=== PATIENT | female | born 1960 | race Caucasian/White ===

== ENCOUNTER 2016-08-27 18:32 | Emergency (ER) | payer OTHER ==
--- NOTE | 2016-08-27 18:45 | EDPHY ---
H & P HPI/ROS: HPI CHIEF COMPLAINT: Back pain, neck pain, shoulder pain, arm pain, chest wall pain HISTORY OF PRESENT ILLNESS: Patient very pleasant 55-year-old female she has significant past medical history for diabetes, she presents to the emergency room for pain in her neck, back, shoulders, arms and chest wall. Patient states this injury happened at work. 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 She tells me the patient weighs 116 lb she states she took both arms and wraps around the patient the patient was lying on the ground she picked up ever since then she has been having paravertebral neck pain paravertebral thoracic pain bilateral shoulder pain and pain to her anterior chest wall especially when she goes to move her arms. She tells me also hurts when you press along her chest wall and back. She denies chest pressure or chest pain or shortness of breath. Denies direct trauma she tells me that she was told to come the emergency room to have an evaluation as her employer's opening up a claim for injury at work. Patient tells me she took Ibuprofen that somewhat helped her pain. She tells me the pain is really bad when she moves both of her arms. Past Medical History: Diabetes Past Surgical History: No recent surgical history Social History: Denies drugs, alcohol, tobacco Family History: Noncontributory ROS REVIEW OF SYSTEMS: A comprehensive 10 point review of systems is otherwise negative aside from elements mentioned in the history of present illness. Exam Constitutional triage nursing summary reviewed, vital signs reviewed, awake/ alert. Eyes normal conjunctivae and sclera, EOMI, PERRLA. HENT normal inspection, atraumatic, moist mucus membranes, no epistaxis, neck supple/ no meningismus, no raccoon eyes. Respiratory clear to auscultation bilaterally, normal breath sounds, no respiratory distress, no wheezing. 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 rate normal, regular rhythm , no murmur, no edema, distal pulses normal. Gastrointestinal soft, non-tender, no rebound, no guarding, normal bowel sounds, no distension, no pulsatile mass. Genitourinary no CVA tenderness. Musculoskeletal no midline vertebral tenderness, full range of motion, no calf swelling, no tenderness of extremities, no meningismus, good pulses, neurovascularly intact. Skin pink, warm, & dry, no rash, skin atraumatic. Neurologic awake, alert and oriented x 3, AAOx3, moves all 4 extremities equally, motor intact, sensory intact, CN II-XII intact, normal cerebellar, normal vision, normal speech. Psychiatric normal mood/affect. Heme/Lymph/Immune no lymphadenopathy. Differential Diagnosis: Includes but is not limited to in a particular order musculoskeletal injury, chest wall injury, back injury from lifting, doubt acute coronary syndrome but will obtain EKG due to diabetes foot, female, and complain of pain all over her back arms and chest. However this appears very musculoskeletal. And she tells me that it happened when she picked up this 116 palpation. She also has reproducible musculoskeletal pain on exam. This patient has no midline cervical spine or thoracic spine pain no indication for imaging. Medical Decision Making: Plan for EKG, ibuprofen. Re-evaluation: EKG interpretation by me on record in [employer] system. Impression time of EKG 1903, this is sinus rhythm rate of 65 I do not appreciate acute ischemic changes specifically no ST elevation, ST depression T-wave abnormalities. Unremarkable EKG. 1938: Patient resting comfortably here in the emergency room EKG unremarkable. Ibuprofen given. Patient requesting a work note. Will for discharge to do recommend hot baths, anti-inflammatory pain meds for musculoskeletal pain. Obviously return emergency room if there is worsening symptoms questions or concerns. Do recommend following up with primary care. Source: Patient Constitutional: Initial Vital Signs Temperature (C) 36.7 C 08/27/16 18:51 Heart Rate 72 08/27/16 18:51 Respiratory Rate 20 08/27/16 18:51 Blood Pressure 139/85 H 08/27/16 18:51 O2 Sat (%) 96 08/27/16 18:51 O2 Delivery Mode Room Air Allergies/Adverse Reactions: No Known Allergies Allergy (Unverified 08/27/16 18:55) Home Medications: Medication Instructions Recorded HUMULIN R 08/27/16 Ibuprofen [Motrin (*)] 800 mg PO Q6-8PRN #7 tab 08/27/16 Lisinopril 08/27/16 Metformin HCl 08/27/16 SIMVASTATIN 08/27/16 Medical Decision Making - Data Points Medications Given: Discontinued Medications Ibuprofen (Motrin) 800 mg PO EDNOW ONE Stop: 08/27/16 19:09 Last Admin: 08/27/16 19:11 Dose: 800 mg Departure - Departure Disposition: Home, Routine, Self-Care Clinical Impression: Chest wall muscle strain Qualifiers: Encounter type: initial encounter Qualified Code(s): S29.011A - Strain of muscle and tendon of front wall of thorax, initial encounter Back strain Qualifiers: Encounter type: initial encounter Qualified Code(s): S39.012A - Strain of muscle, fascia and tendon of lower back, initial encounter Condition: Good Instructions: Muscle Strain (ED), Musculoskeletal Pain (ED), Thoracic Back Strain (ED) Referrals: NONE *PRIMARY CARE P,. [Primary Care Provider] - As per Instructions Prescriptions: Ibuprofen [Motrin (*)] 800 mg PO Q6-8PRN #7 tab
[2016-08-27 18:54] VITALS: TEMP 98.1; O2SAT 96
--- NOTE | 2016-08-27 19:06 | CPEKG ---
Heart Rate: 65 RR Interval: 923 P-R Interval: 160 QRSD Interval: 94 QT Interval: 420 QTC Interval: 437 P [place]: 46 QRS [place]: 29 T Wave [place]: 4 EKG Severity - NORMAL ECG - EKG Impression: SINUS RHYTHM Electronically Signed By: Gil Car 28-Aug-2016 11:43:16
[2016-08-27] MEDS ORDERED: IBUPROFEN 800 MG TAB PO ONE (19:08)
[2016-08-27] MEDS ORDERED: IBUPROFEN 200 MG TAB PO ONE (19:12)
[2016-08-27] MEDS ORDERED: IBUPROFEN 600 MG TAB PO ONE (19:13)
[2016-08-27 19:46] VITALS: BP 135/68; PULSE 82; RESP 18
== END 2016-08-27 19:47 | disposition home or self-care (01) ==
LOC: CED 18:32
DX: S29.011A Strain of muscle and tendon of front wall of thorax, initial encounter (principal); S39.012A Strain of muscle, fascia and tendon of lower back, initial encounter; E11.9 Type 2 diabetes mellitus without complications; Z79.4 Long term (current) use of insulin; Z79.84 Long term (current) use of oral hypoglycemic drugs; W19.XXXA Unspecified fall, initial encounter; Y99.0 Civilian activity done for income or pay; Y93.F2 Activity, caregiving, lifting